=== PATIENT | female | born 1980 | race Caucasian/White ===

== ENCOUNTER 2024-03-22 06:15 | Day surgery (SDC) | payer OTHER, SELFPAY ==
[2024-03-18 10:20] VITALS: BMI 29.4
--- NOTE | 2024-03-21 09:56 | P.CONAN_ITS ---
Documented by User: Suzanne Suarez NP 03/21/24 09:56 HPI - Anesthesia Eval Consult details Narrative: 44yo F for Upper Endoscopy and Colonoscopy [facility] Past Medical History Medical History Seizure H/O flexible sigmoidoscopy Hemorrhoids Depression Asthma Hyperlipidemia GERD (gastroesophageal reflux disease) Surgical History Surgical History History of esophagogastroduodenoscopy (EGD) Hx of nasal septoplasty History of ankle surgery Social History Social History Patient Tobacco Use Status: Never used Tobacco Have you been hit, kicked, punched, or otherwise hurt by someone within the past year? If so, by whom?: No Are you DNR?: No Advance Directives: No Advance Directives Information Provided: Yes Patient : No Meds Allergies Allergy/AdvReac Type Severity Reaction Status Date / Time almond Allergy Anaphylaxis Verified 03/18/24 10:08 environmental allergies Allergy Unknown Verified 03/18/24 10:08 hazelnut Allergy Anaphylaxis Verified 03/18/24 10:08 kady Allergy Fainting Verified 03/18/24 10:08 venlafaxine [From Effexor] Allergy Unknown Verified 03/18/24 10:08 Home Medications ?Medication ?Instructions ?Recorded ?Confirmed ?Last Taken ?Type epinephrine 1 mg/mL injection 03/18/24 Unknown History solution escitalopram oxalate 10 mg tablet 10 mg PO DAILY 03/18/24 03/18/24 03/21/24 History levonorgestrel-ethinyl estradiol 1 tab PO DAILY 03/18/24 03/18/24 03/21/24 History 0.1 mg-20 mcg tablet (Aviane) pantoprazole 40 mg tablet,delayed 40 mg PO DAILY 03/18/24 03/18/24 03/21/24 History release simvastatin 40 mg tablet 40 mg PO BEDTIME 03/18/24 03/18/24 03/20/24 History Zyrtec 03/22/24 03/22/24 03/21/24 History Exam Height,Weight and Vital Signs: Height 5 ft 3 in Weight 75.296 kg Assessment and Plan Assessment Anesthesia Assessment: Chart Reviewed Documented by User: Bisi Mcleod MD 03/22/24 09:20 [facility] Past Medical History Medical History Seizure H/O flexible sigmoidoscopy Hemorrhoids Depression Asthma Hyperlipidemia GERD (gastroesophageal reflux disease) Family History Family history of problems with anesthesia: No Surgical History Surgical History History of esophagogastroduodenoscopy (EGD) Hx of nasal septoplasty History of ankle surgery Social History Social History Patient Tobacco Use Status: Never used Tobacco Have you been hit, kicked, punched, or otherwise hurt by someone within the past year? If so, by whom?: No Are you DNR?: No Advance Directives: No Advance Directives Information Provided: Yes Patient : No Meds Allergies Allergy/AdvReac Type Severity Reaction Status Date / Time almond Allergy Anaphylaxis Verified 03/18/24 10:08 environmental allergies Allergy Unknown Verified 03/18/24 10:08 hazelnut Allergy Anaphylaxis Verified 03/18/24 10:08 kady Allergy Fainting Verified 03/18/24 10:08 venlafaxine [From Effexor] Allergy Unknown Verified 03/18/24 10:08 Home Medications ?Medication ?Instructions ?Recorded ?Confirmed ?Last Taken ?Type epinephrine 1 mg/mL injection 03/18/24 Unknown History solution escitalopram oxalate 10 mg tablet 10 mg PO DAILY 03/18/24 03/18/24 03/21/24 History levonorgestrel-ethinyl estradiol 1 tab PO DAILY 03/18/24 03/18/24 03/21/24 History 0.1 mg-20 mcg tablet (Aviane) pantoprazole 40 mg tablet,delayed 40 mg PO DAILY 03/18/24 03/18/24 03/21/24 History release simvastatin 40 mg tablet 40 mg PO BEDTIME 03/18/24 03/18/24 03/20/24 History Zyrtec 03/22/24 03/22/24 03/21/24 History Exam Airway Mallampati Class: II TM Dist: >3cm Neck ROM: Full Heart: rrr Lungs: cta Assessment and Plan Assessment Anesthesia Assessment: Anesthesia Plan Discussed Final Anesthetic Review Family History of Problems with Anesthesia: No NPO: Yes ASA Class: III Final Preanesthetic Review: No Changes in Pt Med Stat, Meds/Allgs Chart Reviewed, Consent Obtained/Reviewed and Anes Risks/Benef Reviewed Patient Risk: Intermediate Procedure Risk: Low Anesthetic Plan Anesthetic Plan: MAC: Disposition: Standard PACU
[2024-03-22 06:57] VITALS: BP 126/89; PULSE 79; RESP 18; TEMP 36.9; O2SAT 98; BMI 29.8
[2024-03-22 07:00] LABS: UPreg QC Valid YES; Urine Pregnancy NEGATIVE (NEGATIVE)
[2024-03-22] MEDS: Lactated Ringers 1,000 ML 100 ML IVCONT (07:14)
--- NOTE | 2024-03-22 07:41 | MHC.SHP ---
Pre-Procedural Eval Section A - 24 Hr Update-Section A only Date of Service: 03/22/24 Section B - Complete if H&P > 30 days Chief Complaint: Encounter for screening for malignant neoplasm of Details of Present Illness: see H&P no better Relevant Family History (Specify if Yes): No Relevant Social History: None Present Medications: see Short Stay Collaborative assessment Medical History: No relevant PMH History of Previous Operations: No relevant previous surgery Allergies: Allergies Allergy/AdvReac Type Severity Reaction Status Date / Time almond Allergy Anaphylaxis Verified 03/18/24 10:08 environmental allergies Allergy Unknown Verified 03/18/24 10:08 hazelnut Allergy Anaphylaxis Verified 03/18/24 10:08 kady Allergy Fainting Verified 03/18/24 10:08 venlafaxine [From Effexor] Allergy Unknown Verified 03/18/24 10:08 Review of Systems Sugical H&P ROS: Negative: Constitution, Cardiovascular, Respiratory, Neurological, Psychiatric, Hem-Onc, Allergic/Immunologic, Gastrointestinal, Genitourinary, Musculoskeletal, Integumentary, Endocrine and Eyes/Ears/Nose/Throat Exam Surgical H&P Exam: Normal: HEENT, Normal: Heart, Normal: Lungs, Normal: Extremities, Normal: Abdomen, Normal: Skin and Normal: Neurological Plan Diagnosis/Plan: Unchanged I have reviewed the history and physical and performed a pertinent physical examination on my patient. No changes have occurred unless specified. Time Spent With Patient Time: Total time managing care of this patient today ____ minutes.
[2024-03-22 08:25] VITALS: BP 105/58; PULSE 92; RESP 16; TEMP 36.2; O2SAT 98
--- NOTE | 2024-03-22 08:38 | OP_ITS ---
DATE OF SERVICE: 03/22/2024 SURGEON: Michael Van MD INDICATIONS: 1. Gastroesophageal reflux disease. 2. Colon cancer screening. PREOPERATIVE DIAGNOSIS: POSTOPERATIVE DIAGNOSIS: PROCEDURE PERFORMED: ESTIMATED BLOOD LOSS: COMPLICATIONS: ANESTHESIA: Monitored anesthesia care. ASSISTANTS: SPECIMENS: PROCEDURES PERFORMED: Upper endoscopy with biopsy. Colonoscopy to the terminal ileum with biopsy. DESCRIPTION OF PROCEDURE: A history and physical were performed. The risks and benefits of the procedure were explained to the patient, and informed consent was obtained. The patient was placed in left lateral decubitus position. A digital rectal exam was performed prior to the colonoscopy was normal. The Olympus video gastroscope was introduced into the esophagus, stomach, and duodenum. Examination was performed, and the scope was removed. She was repositioned for colonoscopy. The Olympus pediatric video colonoscope was introduced into the rectum and advanced to the cecum. The cecum was identified by transillumination, palpation, and identification of ileocecal valve. Examination was performed, and the scope was removed. She tolerated both procedures well and was returned to recovery area in stable condition. FINDINGS: Upper endoscopy: 1. Esophagus. The esophagus was normal. There was an irregular EG junction. Biopsies were obtained from the EG junction. There was no esophagitis. 2. Stomach showed no evidence of masses, ulcers, or polyps. Antral biopsies were obtained to evaluate for Helicobacter pylori. 3. Duodenum, the bulb and second portion were normal. Colonoscopy: The terminal ileum was examined and appeared normal. The visualized colonic mucosa was within normal limits without evidence of masses or ulcers. There was a small less than 5 mm sessile polyp at 30 cm from the anal verge. This was removed with biopsy forceps. No other polyps were identified. The quality of the prep was good. Retroflexed examination was normal. IMPRESSION: 1. Gastroesophageal reflux disease. 2. Colon polyp. RECOMMENDATION: Follow up the biopsy results. MD MAYUR Cheatham/MIKYL / [id number]
[2024-03-22 08:46] VITALS: BP 120/76; PULSE 64; RESP 17; TEMP 36.2; O2SAT 99
--- OUTSIDE RECORDS SUMMARY | 2024-03-25 13:17 | XMS_ITS ---
Author Organization [facility] Address [address] [place] [address] Care Team Providers Care Transportation Refrigeration Technician Name Role Phone Yosvany Simms MD Primary Care Provider Michael Marrero Jr REASON FOR VISIT gerd,screening PROBLEMS Problem Type ICD Code Onset Dates Problem Status W/U Status Risk SNOMED Code Notes Problem Gastro-esophagea l reflux disease without esophagitis (K21.9) Active confirmed Gastro-esophage al reflux disease without esophagitis (614777476) Encounters Encounter Location Date Provider Diagnosis [facility] [address] [place], [place] [id number] 03/22/2024 Michael Van Jr Colon cancer screening Z12.11 ; Colon polyps K63.5 and Gastro-esophageal reflux disease without esophagitis K21.9 ASSESSMENTS Encounter Date Diagnosis Assessment Notes Treatment Notes Treatment Clinical Notes 03/22/2024 Colon cancer screening (ICD-10 - Z12.11) 03/22/2024 Colon polyps (ICD-10 - K63.5) 03/22/2024 Gastro-esophageal reflux disease without esophagitis (ICD-10 - K21.9) PLAN OF TREATMENT No Information
--- OUTSIDE RECORDS SUMMARY | 2024-03-25 13:17 | XMS_ITS ---
Author Organization [facility] Address [address] [place] [address] Care Team Providers Care [facility] Name Role Phone Yosvany Simms MD Primary Care Provider Michael Marrero Jr Unavailable [phone] ALLERGIES Allergen (clinical drug ingredient) Drug/Non Drug Allergy documented on EMR Reaction Allergy Type Onset Date Status Jose Manuel Passion Fruit OS pass out Drug Allergy Active almond allergenic extract [place] (Diagnostic) anaphylaxis Drug Allergy Active Effexor Unknown Drug Allergy Active christina fruit (uncoded) anaphylaxis Allergy Active enviornmental (uncoded) Unknown Allergy Active hazelnut allergenic extract Hazelnut (Filbert)(Diagnostic) anaphylaxis Drug Allergy Active REASON FOR VISIT Patient presents today for a COLON SCREENING MEDICATIONS Medication SIG (Take, Route, Frequency, Duration) Notes Start Date End Date Status Simvastatin 40 MG TAKE ONE TABLET BY M OUTH DAILY AT BEDTIME Oral for 90 Active Vienva 0.1-20 MG-MCG TAKE ONE TABLET BY MOUTH EVERY DAY Oral for 84 Active EPINEPHrine (Anaphylaxis) 1 MG/ML as directed Injection Active Pantoprazole Sodium 40 MG TAKE ONE TABLE T BY MOUTH EVERY DAY Oral for 30 Active Escitalopram Oxalate 10 MG Oral for 30 Active SOCIAL HISTORY Tobacco Use: Social History Observation Description Date Details (start date - stop date) Never Smoker NA - NA Sex Assigned At : Social History Observation Description Sex Assigned At Unknown Tobacco Use/Smoking Question Answer Notes Patient is a nonsmoker Alcohol Screen Question Answer Notes Did you have a drink contain ing alcohol in the past year? Yes How often did you have a dri nk containing alcohol in the past year? 2 to 4 times a month (2 points) How many drinks did you have on a typical day when you were drinking in the past year? 3 or 4 drinks (1 point) How often did you have 6 or more drinks on one occasion in the past year? Never (0 point) Points 3 Interpretation Positive PROBLEMS Problem Type ICD Code Onset Dates Problem Status W/U Status Risk SNOMED Code Notes Problem Gastroesophageal reflux disease without esophagitis (K21.9) Active confirmed 982891520 Problem Screening for colon cancer (Z12.11) Active confirmed 831364005 VITAL SIGNS BMI 29.47 kg/m2 01/18/2024 Blood pressure systolic 000 mm Hg 01/18/20 24 Blood pressure diastolic 00 mm Hg 024 Height 5 ft 3 in in 01/18/2024 Temperature 97.7 degrees Fahrenheit 01/18/20 24 Weight 166 lb 6 oz lbs 01/18/2024 Encounters Encounter Location Date Provider Diagnosis [facility] [address] [place] [id number] 01/18/2024 Michael Van Jr Gastroesophageal reflux disease without esophagitis K21.9 and Screening for colon cancer Z12.11 ASSESSMENTS Encounter Date Diagnosis Assessment Notes Treatment Notes Treatment Clinical Notes 01/18/2024 Gastroesophageal ref lux disease without esophagitis (ICD-10 - K21.9) 01/18/2024 Screening for colon cancer (ICD-10 - Z12.11) PLAN OF TREATMENT Future Test Test Name Order Date UPPER GI ENDOSCOPY 01/18/2024 COLONOSCOPY 01/18/2024 Next Appt Details Follow Up: 1 Year, Reason: Progress Notes * Examination Category Sub-Category Detail Notes General Examination GENERAL APPEARANCE: in no ac [place] distress HEAD: normocephalic EYES: sclera non-icteric NECK/THYROID: no lymphadenopathy HEART: S1, S2 normal, no mu rmurs CHEST: normal shape and exp ansion LUNGS: clear to auscultatio n bilaterally ABDOMEN: soft, nontender, non distended, bowel sounds present, no organomegaly SKIN: anicteric EXTREMITIES: no clubbing, cyanosi s, or edema PSYCH: cognitive function i ntact ORAL CAVITY: mucosa moist
--- OUTSIDE RECORDS SUMMARY | 2024-03-25 13:17 | XMS_ITS | Patient Health Record ---
Author Organization [facility] Address [address] [place] [address] Care Team Providers Care Manager Presentation Name Role Phone Yosvany Simms MD Primary Care Provider Michael Marrero Jr Unavailable [phone] ALLERGIES Allergen (clinical drug ingredient) Drug/Non Drug Allergy documented on EMR Reaction Allergy Type Onset Date Status Jose Manuel Passion Fruit OS pass out Drug Allergy Active almond allergenic extract [place] (Diagnostic) anaphylaxis Drug Allergy Active Effexor Unknown Drug Allergy Active christina fruit (uncoded) anaphylaxis Allergy Active enviornmental (uncoded) Unknown Allergy Active hazelnut allergenic extract Hazelnut (Filbert)(Diagnostic) anaphylaxis Drug Allergy Active RESULTS Component Value Reference Range Notes Pathology (Not yet reviewed by provider) Interpretation: Performing Lab:[facility], [address] [place] [phone] Notes/Report: Ur Preg Test Reviewed date:03/22/2024 04:35:46 PM Interpretation: Performing Lab:[facility], [address] [place] [phone] Notes/Report: Urine NEGATIVE NEGATIVE This test was developed to detect early . False negative results may occur after the 5th - 7th week of when using this test method. If clinically indicated, consider a serum hCG. REASON FOR REFERRAL No Information MEDICATIONS Medication SIG (Take, Route, Frequency, Duration) [...] Oxalate 10 MG Oral for 30 Active IMMUNIZATIONS Vaccine Route Administration Date Status Comme nts Influenza Unknown 02/24/2023 Administered SOCIAL HISTORY Tobacco Use: Social History Observation [...] reflux disease without esophagitis (K21.9) Active confirmed [id number] Problem Screening for colon cancer (Z12.11) Active confirmed 333542581 Problem Gastro-esophageal reflux disease without esophagitis (K21.9) Active confirmed Gastro-esophag eal reflux disease without esophagitis (524268240) VITAL SIGNS Temperature 97.7 degrees Fahrenheit 01/18/2024 Blood pressure diastolic 00 mm Hg 01/18/2024 Height 5 ft 3 in in 01/18/2024 Blood pressure systolic 000 mm Hg 01/18/2024 Weight 166 lb 6 oz lbs 01/18/2024 BMI 29.47 kg/m2 01/18/2024 Encounters Encounter Location Date Provider Diagnosis [facility] [address] [place], [place] [id number] 03/22/2024 Michael Vna Jr Colon cancer screening Z12.11 ; Colon polyps K63.5 and Gastro-esophageal reflux disease without esophagitis K21.9 [facility] [address] [place] [address] 01/18/2024 Michael Van Jr Gastroesophageal reflux disease without esophagitis K21.9 and Screening for colon cancer Z12.11 ASSESSMENTS Encounter Date Diagnosis Assessment Notes Treatment Notes Treatment Clinical Notes 03/22/2024 Colon cancer screeni ng (ICD-10 - Z12.11) 03/22/2024 Colon polyps (ICD-10 - K63.5) 01/18/2024 Gastroesophageal ref lux disease without esophagitis (ICD-10 - K21.9) 01/18/2024 Screening for colon cancer (ICD-10 - Z12.11) 03/22/2024 Gastro-esophageal reflux disease without esophagitis (ICD-10 - K21.9) PLAN OF TREATMENT Pending Test Test Name Order Date Pathology 03/22/2024 Future Test Test Name Order Date UPPER GI ENDOSCOPY 01/18/2024 COLONOSCOPY 01/18/2024 Insurance Providers Payer Name Payer Address Payer Phone Subscriber Number Group Number Insured Name Patient Relationship to Insured Coverage Start Date Coverage End Date [facility] [address] [place] [phone] [id number] MILAGROS MURRAY Self - patient is the insured MEDICAL (GENERAL) HISTORY Medical History History ICD Code Gastroesophageal reflux disease Hyperlipidemia Asthma, mild intermittent Depression Hemorrhoids Surgical History Surgery Date(Month/Year) Ankle surgery (os trigonum excision) 201 7 septoplasty with turbinate reduction 201 4
== END 2024-03-22 09:06 | disposition home or self-care (01) ==
PROVIDERS: Nurse Practitioner; PCP Internal Medicine; Visit Provider Internal Medicine Gastroenterology
PROC: (CPT 45380; principal; 2024-03-22 07:30)
DX: Z12.11 Encounter for screening for malignant neoplasm of colon (principal); K63.5 Polyp of colon; K64.8 Other hemorrhoids; K21.9 Gastro-esophageal reflux disease without esophagitis; K22.70 Barrett's esophagus without dysplasia; E78.5 Hyperlipidemia, unspecified; J45.20 Mild intermittent asthma, uncomplicated; F32.A Depression, unspecified; Z79.899 Other long term (current) drug therapy; Z98.890 Other specified postprocedural states
CPT/HCPCS: 45380; 43239; 81025; 88305; 88313; 88342; J1100; J1596; J2003; J2704

== ENCOUNTER 2024-03-29 10:17 | Outpatient (REF) | payer OTHER, SELFPAY ==
--- NOTE | ~2024-03-29 | XR_ITS ---
EXAMINATION: XR ABDOMEN COMPLETE CLINICAL INDICATION: LEFT UPPER ABD ABD PAIN COMPARISON: None available. TECHNIQUE: 2 views of the abdomen. FINDINGS: The bowel gas pattern is normal with no evidence of ileus or obstruction. Large to moderate volume of stool throughout the colon. No unusual soft tissue calcifications are noted. Multiple calcified phleboliths in the pelvis. The bones are unremarkable. XR/XR abdomen min 2V IMPRESSION: Unremarkable examination. Electronically signed by: Andre Atkins MD 03/30/2024 05:29 PM EST
[2024-03-29 10:44] LABS: MANUAL DIFF FLAG NO
[2024-03-29 11:28] LABS: Basophils Percent Auto 0.5 % (0-2); Eosinophils Percent Auto 0.6 % (0-4); Hematocrit 43.5 % (37.0-47.0); Hemoglobin 14.8 g/dl (12.0-16.0); Imm Gran Abs Auto 0.01 X10*3/uL (0.00-0.03); Imm Gran Pct Auto 0.2 % (0.0-0.4); Lymphocytes Absolute Auto 1.3 X10*3/uL (1.2-4.9); Mean Corpuscular Hemoglobin 32.1 pg (27.0-33.0); Mean Corpuscular Volume 94.4 fL (80.0-98.0); Mean Platelet Volume 9.8 fL (9.4-12.3); Monocytes Absolute Auto 0.4 X10*3/uL (0.1-1.2); Monocytes Percent Auto 5.5 % (2-11); Neutrophils Absolute Auto 4.6 x10*3/uL (2.0-8.3); Neutrophils Percent Auto 72.2 % (45-73); Platelet Count 299 X10*3/uL (160-400); Red Blood Count 4.61 X10*6/uL (4.20-5.50); Red Cell Distribution Width 12.7 % (11.0-16.0); White Blood Count 6.3 X10*3/uL (4.8-10.8)
[2024-03-29 12:38] LABS: Alanine Aminotransferase 15 U/L (0-31); Albumin Level 4.4 g/dL (3.5-5.0); Alkaline Phosphatase 47 U/L (39-117); Aspartate Amino Transferase 21 U/L (5-31); Bilirubin Direct 0.1 mg/dL (0.0-0.5); Bilirubin Total 0.3 mg/dL (0.0-1.0); Lipase 32 U/L (8-78); Total Protein 7.8 g/dL (6.5-8.0)
== END 2024-03-29 10:18 | disposition home or self-care (01) ==
LOC: HO.XRAY 10:17
PROVIDERS: PCP Internal Medicine; Visit Provider Internal Medicine Gastroenterology
DX: R10.12 Left upper quadrant pain (principal)
CPT/HCPCS: 36415; 74019; 80076; 83690; 85025